=== PATIENT | male | born 1980 | race Caucasian/White ===

== ENCOUNTER 2016-02-17 19:34 | Emergency (ER) | payer OTHER ==
[~2016-02-17] VITALS: Ht 172.7 cm; Wt 90.0 kg
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
[2016-02-17] MEDS ORDERED: SODIUM CHLOR 0.9% 1000 ML INJ 1,000 ML IV ONE (21:30)
[2016-02-17] MEDS ORDERED: TETANUS/DIPHTHERIA TOXOID ADULT 0.5 ML VIAL IM ONE (21:30)
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
[2016-02-17] MEDS ORDERED: LIDOCAINE 1%/EPINEPHrine 1:100,000 SOLN 20 ML VIAL INFIL ONE (23:30)
[2016-02-17 23:55] VITALS: BP 105/66; PULSE 98; RESP 18; TEMP 98.1; O2SAT 94
[2016-02-18 00:14] VITALS: BP 103/65; PULSE 78; RESP 18; TEMP 98.1; O2SAT 98
[2016-02-18 00:32] LABS: AUTOMATED NEUTROPHIL # 10.1 TH/MM3 (1.8-7.7); BASOPHIL % 0.3 % (0.0-2.0); HEMATOCRIT 53.6 % (39.0-51.0); HEMO FLAGS DIFF FINAL; LYMPH % 10.4 % (9.0-44.0); LYMPHOCYTE # 1.2 TH/MM3 (1.0-4.8); MEAN CELL VOLUME 88.4 FL (80.0-100.0); MEAN CORPUSCULAR HEMOGLOBIN 30.7 PG (27.0-34.0); MEAN CORPUSCULAR HGB CONC 34.7 % (32.0-36.0); MONO % 1.9 % (0.0-8.0); NEUT % 87.4 % (16.0-70.0); PLATELET COUNT 259 TH/MM3 (150-450); RED BLOOD COUNT 6.06 MIL/MM3 (4.50-5.90); RED CELL DISTRIBUTION WIDTH 14.2 % (11.6-17.2); WHITE BLOOD COUNT 11.6 TH/MM3 (4.0-11.0)
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
[2016-02-18 00:42] LABS: APTT (PATIENT) 26.6 SEC (24.3-30.1); PROTHROMBIN TIME - PATIENT 11.4 SEC (9.8-11.6)
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
[2016-02-18 00:53] LABS: ANION GAP 9 MEQ/L (5-15); AST (GOT) 28 U/L (15-37); BICARBONATE 25.7 MEQ/L (21.0-32.0); CHLORIDE 110 MEQ/L (98-107); GLOMERULAR FILTRATION RATE 97 ML/MIN (>89); SODIUM (NA) 145 MEQ/L (136-145)
[2016-02-18 00:56] LABS: ALKALINE PHOSPHATASE 109 U/L (45-117); ALT (GPT) 56 U/L (12-78); BLOOD UREA NITROGEN 7 MG/DL (7-18); TOTAL BILIRUBIN ADULT 0.2 MG/DL (0.2-1.0)
[2016-02-18] MEDS ORDERED: IBUP-232 PO (02:13)
[2016-02-18] MEDS ORDERED: AUGM875T PO (02:13)
[2016-02-18] MEDS ORDERED: KETOROLAC TROMETHAMINE 60 MG/2 ML (IM) VIAL IM ONE (02:30)
[2016-02-18] MEDS ORDERED: THIAMINE HCL 100 MG TAB PO ONE (02:45)
== END 2016-02-18 05:52 | disposition home or self-care (01) ==
LOC: NEPA 19:34 → NEDAMB 02-18 05:52
DX: S02.413A LeFort III fracture, initial encounter for closed fracture (principal); S01.511A Laceration without foreign body of lip, initial encounter; F10.129 Alcohol abuse with intoxication, unspecified; Y90.8 Blood alcohol level of 240 mg/100 ml or more; Y04.0XXA Assault by unarmed brawl or fight, initial encounter; Y92.89 Other specified places as the place of occurrence of the external cause; Z23 Encounter for immunization
CPT/HCPCS: 12013; 70450; 70486; 72125; 80053; 80320; 85025; 85610; 85730; 90471; 90714; 96365; 96372; 99284; J0690; J1885; J7030